=== PATIENT | female | born 1930 | race Caucasian/White ===

== ENCOUNTER 2019-03-29 14:21 | Inpatient (IN) ==
--- NOTE | 2019-03-29 15:22 | EKG Report ---
Test Performed on : 03/29/2019 2:59:40 PM Test Reason : SOB Blood Pressure : / mmHG Vent. Rate : 117 BPM Atrial Rate : 117 BPM P-R Int : 136 ms QRS Dur : 080 ms QT Int : 308 ms P-R-T Axes : 040 -63 028 degrees QTc Int : 429 ms Sinus tachycardia. Left axis deviation Low voltage QRS Possible Anterolateral infarct , age undetermined Abnormal ECG No previous ECGs available Unconfirmed Result
[2019-03-29 15:24] LABS: BASO# 0.02 X1000 (0.0-0.2); BASO% 0.3 % (0.0-0.8); HEMATOCRIT 21.1 % (37.0-47.0); HEMOGLOBIN 6.3 g/dL (12.0-16.0); LYMPH# 1.32 X1000 (1.2-3.4); LYMPH% 20.5 % (20.5-51.1); MCH 23.5 PG (27-31); MCHC 29.9 g/dL (33-37); MCV 78.7 FL (81-99); MONO# 0.39 X1000 (0.11-0.59); MPV 9.6 FL (7.4-10.4); NEUT# 4.72 X1000 (1.4-6.5); NEUT% 73.2 % (42.2-75.2); PLT 334 X1000 (130-400); RBC 2.68 XMIL (4.2-5.4); RDW 16.7 % (11.5-14.5); WBC 6.45 X1000 (4.8-10.8)
[2019-03-29 15:25] LABS: INR 1.03; PROTIME 13.7 Seconds (11.0-16.0); PTT 27.3 Seconds (22.3-41.8)
[2019-03-29 15:42] LABS: AGAP 9; ALB/GLOB RATIO 1.2; ALBUMIN 3.5 g/dL (3.5-5.0); ALKALINE PHOSPHATASE 59 U/L (32-104); BUN 24 mg/dL (8-22); CALCIUM 8.5 mg/dL (8.8-10.2); CHLORIDE 105 mmol/L (98-107); COSMO 280; CREATININE 0.6 mg/dL (0.5-0.9); ESTIMATED GFR > 60; GLUCOSE 145 mg/dL (70-104); GOT 11 U/L (10-30); GPT 5 U/L (10-36); POTASSIUM 4.1 mmol/L (3.5-5.1); SODIUM 137 mmol/L (136-145); TCO2 23 mmol/L (25-35); TOTAL BILIRUBIN 0.19 mg/dL (0.20-1.00); TOTAL PROTEIN 6.4 g/dL (6.3-8.3)
[2019-03-29] MEDS ORDERED: PROTONIX IV ONE (15:51)
[2019-03-29] MEDS ORDERED: SODIUM CHLORIDE 0.9% INJ ONE ×2 (15:51→19:00)
[2019-03-29] MEDS ORDERED: NS 1,000 ML IV ONE (15:52)
--- NOTE | 2019-03-29 17:35 | Diag Imaging Result Doc PS360 ---
EXAM: CT ANGIOGRAM ABD/PELVIS W/CON INDICATION: gi bleed TECHNIQUE: This exam was performed using automated exposure control, adjustment of mA or kV according to patient size, and/or use of iterative reconstruction technique. Thin section axial images and 3-D MIPS were obtained. COMPARISON: 04/02/2014 FINDINGS: There is a blush of contrast near the anal verge. This could be the source of bleeding. Please correlate clinically. No other abnormal contrast extravasation is identified along the colon, small bowel, or stomach. There is fairly advanced diverticulosis coli mainly involving the sigmoid colon. There is no evidence of diverticulitis. The liver, spleen, gallbladder, pancreas, and adrenal glands are grossly unremarkable. The kidneys are essentially unremarkable. The urinary bladder appears normal. There is a right ovarian cyst with no definite associated enhancement measuring 3.6 cm axially (2.5 cm previously). The remainder of the reproductive tract is grossly unremarkable as imaged. There are numerous compression deformities throughout the lower thoracic spine and lumbar spine that are of unknown acuity but probably chronic. There have been prior vertebroplasty at a couple of levels. There is moderate aortic atherosclerotic calcification but no evidence of aortic aneurysm. There is mild to moderate iliac artery atherosclerotic calcification. The iliac arteries remain patent. There is minimal atherosclerotic calcification involving the common femoral arteries bilaterally that remain patent. There is mild atherosclerotic calcification at the origin of the renal arteries and celiac trunk, which remain patent. The SMA and MARTHA are patent. IMPRESSION: 1.Contrast blush near the anal verge. This could be the site of the GI bleeding. No other abnormal contrast extravasation is appreciated. 2.Moderate aortic atherosclerotic disease. 3.Extensive uncomplicated sigmoid colonic diverticulosis. 4.Numerous lower thoracic and lumbar spine compression deformities of unknown acuity. 5.Increase in size of right ovarian cyst seen in 2014. However, no enhancement is appreciated. Electronically signed by Cruzito Bray 03/29/2019 5:33 PM
--- NOTE | 2019-03-29 18:55 | PROVIDER DOCUMENTATION ---
This chart was entered by Clara Eid Scribe, acting as scribe for Wei Caballero MD. HPI-Abdominal Pain/GI Problem - General Chief Complaint: GI Bleed Stated Complaint: PASSING BLOOD Time Seen by Provider: 03/29/19 15:03 Source: patient Allergies/Adverse Reactions: Patient Allergies Allergy/AdvReac Type Severity Reaction Status Date / Time Penicillins Allergy Unknown Verified 03/29/19 15:59 Home Medications: Home Medication List Medication Instructions Recorded Confirmed Last Taken Type NK [No Home Medications] 03/29/19 03/29/19 Unknown History - History of Present Illness-ABD Nature of Presenting Problems: Patient is a 88 year old female who presents with rectal bleeding. States weakness and dizziness with rectal bleeding. Reports symptoms started 2 days ago. Denies nausea, vomiting, diarrhea, constipation and abdominal pain. History of GI bleed. Quality of Pain: reports: none Severity in ED: reports: mild Onset/Duration: reports: 2 days ago Timing: reports: still present Activities at Onset: reports: light activity Associated Symptoms: reports: dizziness, weakness, other (rectal bleeding). denies: diarrhea, nausea, vomiting Dark Stools Present?: reports: bright red blood Rectal Bleeding: reports: bleeding without stool Bruising or Bleeding Gums?: No Similar Symptoms Previously?: Yes Recently seen or treated by another doctor?: No Review of Systems - Adult - REVIEW OF SYSTEMS - ADULT Constitutional: reports: no symptoms reported Eyes: reports: no symptoms reported Ears, Nose, Mouth & Throat: reports: no symptoms reported Cardiovascular: reports: no symptoms reported Respiratory: reports: no symptoms reported Gastrointestinal: reports: see HPI, rectal bleeding. denies: abdominal pain, diarrhea, nausea, vomiting Genitourinary: reports: no symptoms reported Musculoskeletal: reports: see HPI, muscle weakness Integumentary: reports: no symptoms reported Neurological: reports: see HPI, dizziness/vertigo (dizziness). denies: syncope Psychiatric: reports: no symptoms reported Endocrine: reports: no symptoms reported Hematologic/Lymphatic: reports: no symptoms reported Allergic/Immunologic: reports: no symptoms reported All Other Systems: Reviewed and Negative Past History - Adult - PAST MEDICAL HISTORY-ADULT Review of Records: reports: Old Records Reviewed, Nursing Assessment Review, Medications Reviewed, Social history reviewed & non-contributory. Major Childhood Illnesses: reports: denies history Cardiovascular: reports: denies history Respiratory: reports: denies history Gastrointestinal: reports: GERD, hemorrhoids, other (GI bleed) Obstetrical/Gynecological: reports: denies history Genitourinary: reports: denies history Musculoskeletal: reports: denies history Neurological: reports: denies history Psychiatric: reports: denies history Endocrine/Immune: reports: denies history - PRIOR SURGERIES/PROCEDURES Surgical/Procedure History: reports: colonoscopy, tonsillectomy - PRIOR HOSPITALIZATIONS Prior Hospitalizations: reports: none - IMMUNIZATION STATUS Childhood Immunizations: UTD Flu Vaccine: See Nurse Assessment - FAMILY HISTORY Family History: reviewed, not pertinent, CAD over 55 yo - SOCIAL HISTORY Smoking: denies Substance Use: denies Physical Exam-General - PHYSICAL EXAM-ADULT Initial Vital Signs Reviewed: Yes - CONSTITUTIONAL General Appearance: appears well, alert, no apparent distress, thin - RESPIRATORY Respiratory: chest non-tender, lungs clear, normal breath sounds - CARDIOVASCULAR Cardiovascular: regular rate, rhythm, no gallop, no murmur - GASTROINTESTINAL (ABDOMEN) Abdominal Exam: normal bowel sounds, non tender, soft - GENITOURINARY Rectal Exam: hemorrhoids (external), other (grossly bloody stool present.) - MUSCULOSKELETAL Extremity: non-tender, normal inspection - SKIN Integumentary: normal color, normal turgor, warm/dry - NEUROLOGIC Neurologic: grossly normal - PSYCHIATRIC Psych/Mental Status: normal mood/affect, oriented x 3 Progress - PLAN OF CARE/RESULTS Progress/Plan/Lab Results: Vital Signs - 8 hr 03/29/19 14:45 Temperature 98.2 F Pulse Rate 117 H Respiratory Rate 20 Blood Pressure 109/62 O2 Sat by Pulse Oximetry 97 Laboratory Results - last 24 hr 03/29/19 03/29/19 03/29/19 15:05 15:05 15:05 WBC 6.45 RBC 2.68 L Hgb 6.3 L Hct 21.1 L MCV 78.7 L MCH 23.5 L MCHC 29.9 L RDW Std Deviation 16.7 H Plt Count 334 MPV 9.6 Immature Gran % (Auto) 0.0 Neut % (Auto) 73.2 Lymph % (Auto) 20.5 [place] % (Auto) 6.0 Eos % (Auto) 0.0 Baso % (Auto) 0.3 Immature Gran # (Auto) 0.00 Neut # (Auto) 4.72 Lymph # (Auto) 1.32 [place] # (Auto) 0.39 Eos # (Auto) 0.00 Baso # (Auto) 0.02 PT 13.7 INR 1.03 PTT (Actin FS) 27.3 Sodium 137 Potassium 4.1 Chloride 105 Carbon Dioxide 23 L Anion Gap 9 BUN 24 H Creatinine 0.6 Estimated GFR/1.73 m2 > 60 BUN/Creatinine Ratio 40 Glucose 145 H Calculated Osmolality 280 Calcium 8.5 L Total Bilirubin 0.19 L AST 11 ALT 5 L Alkaline Phosphatase 59 Total Protein 6.4 Albumin 3.5 Globulin 2.9 Albumin/Globulin Ratio 1.2 Orders Category Date Time Status CBC WITH ELECTRONIC DIFF [HEME] Stat Lab 03/29/19 15:05 Completed COMPREHENSIVE METABOLIC PANEL [CHEM] Stat Lab 03/29/19 15:05 Completed OCCULT BLOOD SCREENING [STOOL] Stat Lab 03/29/19 15:06 Uncollected PROTIME WITH INR [COAG] Stat Lab 03/29/19 15:05 Completed PTT [COAG] Stat Lab 03/29/19 15:05 Completed TYPE & SCREEN [BBK] Stat Lab 03/29/19 15:05 Results GI Bleed (possible) Stat Oth 03/29/19 14:57 Ordered EKG [EKG] Stat Ther 03/29/19 15:02 Draft Noted anemia so given 2 units PRBCs and noted positive hemoccult. HD stable at this time. Also given IV normal saline bolus and protonix IVP. Proceed to admit with Dr. Bean hospitalist. Patient aware and agrees with plan of care. Noted CTA finding of GI bleed source at anal verge with extensive sigmoid diver ticulosis. No altered mental status. Result Diagrams: 03/29/19 15:05 03/29/19 15:05 - EKG 1 Time of EKG reading by physician:: 15:10 EKG Read and Signed by:: Naun Bolivar EKG Interpretation (*Must complete 3 of following elements*): Abnormal Rate: 117 Rhythm: sinus tachycardia [place]: left QRS: other (low voltage) LA Interval: normal Comments: possible anterolateral infarct, age undetermined - CT/MRI 1 CT Study: Abdomen Impression: See EMR Report (EXAM: CT ANGIOGRAM ABD/PELVIS W/CON INDICATION: gi bleed TECHNIQUE: This exam was performed using automated exposure control, adjustment of mA or kV according to patient size, and/or use of iterative reconstruction technique. Thin section axial images and 3-D MIPS were obtained. COMPARISON: 04/02/2014 FINDINGS: There is a blush of contrast near the anal verge. This could be the source of bleeding. Please correlate clinically. No other abnormal contrast extravasation is identified along the colon, small bowel, or stomach. There is fairly advanced diverticulosis coli mainly involving the sigmoid colon. There is no evidence of diverticulitis. The liver, spleen, gallbladder, pancreas, and adrenal glands are grossly unremarkable. The kidneys are essentially unremarkable. The urinary bladder appears normal. There is a right ovarian cyst with no definite associated enhancement measuring 3.6 cm axially (2.5 cm previously). The remainder of the reproductive tract is grossly unremarkable as imaged. There are numerous compression deformities throughout the lower thoracic spine and lumbar spine that are of unknown acuity but probably chronic. There have been prior vertebroplasty at a couple of levels. There is moderate aortic atherosclerotic calcification but no evidence of aortic aneurysm. There is mild to moderate iliac artery atherosclerotic calcification. The iliac arteries remain patent. There is minimal atherosclerotic calcification involving the common femoral arteries bilaterally that remain patent. There is mild atherosclerotic calcification at the origin of the renal arteries and celiac trunk, which remain patent. The SMA and MARTHA are patent. I MPRESSION: 1.Contrast blush near the anal verge. This could be the site of the GI bleeding. No other abnormal contrast extravasation is appreciated. 2.Moderate aortic atherosclerotic disease. 3.Extensive uncomplicated sigmoid colonic diverticulosis. 4.Numerous lower thoracic and lumbar spine compression deformities of unknown acuity. 5.Increase in size of right ovarian cyst seen in 2015. However, no enhancement is appreciated. Electronically signed by Cruzito Bray 03/29/2019 5:33 PM) Departure - Departure Date of Disposition Decision: 03/29/19 Time of Disposition Decision: 18:52 DIAGNOSIS: Lower GI bleed, Symptomatic anemia Disposition: ADMITTED INPATIENT 09 Certified Medical Emergency: Emergent Condition: Fair Referrals and Follow-Ups: Joslyn Mendoza MD [Primary Care Provider] - - Critical Care Note This patient required my direct & personal management of CC.: Yes Total Time (mins): 61 Critical Care Statement: This patient required my direct personal management to treat or rule out processes, the absence of which, could potentiallly result in sudden, clinically significant life or limb threatening deterioration. Attestation - Physician/ YA Attestation Patient care was provided by Advanced Practice Provider:: No The physician spent face to face time with patient:: Yes Advanced Practice Provider documentation review:: Supervising physician onsite and consulted in the evaluation and care of this patient. The physician did have a face to face encounter with the patient. This chart was documented by the indicated scribe, (Clara Eid Scribe) and accurately reflects the services I performed and decisions made by me, Wei Suarez MD, as attested by the provider's signature.
[2019-03-29] MEDS ORDERED: PROTONIX IV SCH (19:00)
--- NOTE | 2019-03-29 19:19 | HISTORY AND PHYSICAL ---
HISTORY OF PRESENT ILLNESS: This is an 88-year-old whose doctor is Dr. Joslyn Mendoza. She has had previous admissions for anemia. They are not sure where she is losing blood. They think it is around the rectum, but she has not had any symptoms, has not noticed any blood in her stool, but she has noticed that she has felt a little lightheaded and weak in the last couple weeks and then she said the other day she felt like she might pass out. So, recognizing the symptoms, she came to the emergency room. In the emergency room, they found her hemoglobin was 6.3, hematocrit was 21. She says she has no other past medical history. No surgeries other than her tonsils taken out. ALLERGIES: Penicillin. SOCIAL HISTORY: Negative for alcohol or tobacco. FAMILY HISTORY: Unremarkable. REVIEW OF SYSTEMS: General: No weight gain or loss. No fever or chills. HEENT: Unremarkable. Respiratory: No increased work of breathing or dyspnea. Cardiovascular: No chest pain or tachy palpitations. Gastrointestinal and Genitourinary: No gross hematuria or dysuria. Musculoskeletal/Neurologic: No significant complaints. Endocrinologic/Hematologic: No significant history other than blood loss anemia requiring transfusions in the past. She has had workups with endoscopy and other things and from her understanding, they do not have a definitive answer where the blood is going. LABORATORY DATA: White count 6450, hematocrit 21, hemoglobin 6.3, platelet count 334,000. Sodium 137, potassium 4.1, chloride 105, BUN 25, creatinine 0.6, blood sugars 145, calcium is 8.5. AST 11, ALT is 5, alkaline phosphatase 59. ProTime is 13.7, INR is 1.03, PTT is 27. IMAGING: Abdominal and pelvic CT: Contrast blush near the anal verge. This could be the side of the GI bleed. Moderate aortic atherosclerotic disease. Extensive uncomplicated sigmoid colon diverticulosis and numerous lower thoracic and lumbar spine compression deformities of unknown acuity. There is an increased size of right ovarian cyst since 2015. ASSESSMENT AND PLAN: Gastrointestinal blood loss. We will give her some blood. Start of with 2 units packed red blood cells. Hopefully, she can go home in the morning. I do not think we are going to explore any further as for gastrointestinal exploration. We ought to check her T4, TSH. We ought to check her B12 and folate. We will check iron studies including ferritin, total iron, serum iron and total iron binding capacity, and we will give her 2 units. Check her hemoglobin and hematocrit in the morning and decide whether they want to give any more blood. Hopefully, she can go home. cc: Thiago eBan MD
[2019-03-29 19:57] LABS: FREE T4 0.89 ng/dL (0.93-1.70)
[2019-03-29] MEDS ORDERED: TYLENOL PO PRN (20:00)
[2019-03-29] MEDS ORDERED: ZOFRAN IV PRN (20:00)
[2019-03-30 07:09] LABS: HEMATOCRIT 24.1 % (37.0-47.0); HEMOGLOBIN 7.6 g/dL (12.0-16.0); MCH 25.6 PG (27-31); MCHC 31.5 g/dL (33-37); MCV 81.1 FL (81-99); MPV 9.7 FL (7.4-10.4); RBC 2.97 XMIL (4.2-5.4); RDW 15.9 % (11.5-14.5); RETIC% 1.64 % (0.8-2.1); RETIC-HE 22.8 PG (28.2-36.6); WBC 4.14 X1000 (4.8-10.8)
[2019-03-30 07:32] LABS: URINE SOURCE CLEAN CATCH
[2019-03-30 07:37] LABS: BILIRUBIN URINE NEGATIVE (NEGATIVE); BLOOD URINE NEGATIVE (NEGATIVE); COLOR YELLOW; GLUCOSE URINE NEGATIVE (NEGATIVE); KETONE URINE NEGATIVE (NEGATIVE); LEUKOCYTES URINE NEGATIVE (NEGATIVE); NITRITE URINE NEGATIVE (NEGATIVE); PROTEIN URINE NEGATIVE (NEGATIVE); SP GRAVITY URINE 1.044; TURBIDITY URINE CLEAR (CLEAR); UROBILINOGEN URINE NORMAL (NORMAL)
[2019-03-30 07:42] LABS: UR EPITHELIAL CELLS <10 /HPF (<10); URINE BACTERIA NEGATIVE /HPF; URINE RBC <10 /HPF (<10); URINE WBC <10 /HPF (<10)
[2019-03-30 07:49] LABS: AGAP 6; BUN 13 mg/dL (8-22); CHLORIDE 108 mmol/L (98-107); COSMO 276; CREATININE 0.6 mg/dL (0.5-0.9); ESTIMATED GFR > 60; GLUCOSE 98 mg/dL (70-104); POTASSIUM 3.8 mmol/L (3.5-5.1); SODIUM 138 mmol/L (136-145); TCO2 24 mmol/L (25-35)
[2019-03-30 07:50] LABS: IRON SATURATION 59 %; TIBC 293 ug/dL; TOTAL IRON 173 ug/dL (49-151); UNBOUND IRON 120 ug/dL (112-346)
[2019-03-30 08:11] LABS: TSH 5.76 uIUmL (0.27-4.20)
[2019-03-30 15:12] LABS: HEMATOCRIT 25.5 % (37.0-47.0); HEMOGLOBIN 7.9 g/dL (12.0-16.0)
[2019-03-30] MEDS: PROTONIX IV SCH ×2 (17:43→17:48)
[2019-03-30] MEDS: SODIUM CHLORIDE 0.9% INJ SCH (17:47)
--- NOTE | 2019-03-31 05:08 | PROGRESS NOTE ---
DATE: 03/30/2019 SUBJECTIVE: The patient is resting comfortably in bed. She states that she has not had a bowel movement since admission. She denies having any nausea, vomiting, or abdominal pain. She received 2 units of packed red blood cells yesterday. OBJECTIVE: Vital Signs: Temperature 98.5 degrees, blood pressure 126/61, heart rate 63, respirations 18, O2 saturation 96% on room air. General: This is a chronically ill-appearing, elderly female lying in bed in no acute distress. Heart: S1, S2 normal. Regular rate and rhythm. Lungs: Clear to auscultation bilaterally. Abdomen: Positive bowel sounds. Soft, nontender, nondistended. Extremities: No edema, no cyanosis. Neurologic: The patient is alert and oriented x4. LABS: White blood cell count 4.1, hemoglobin 7.9, hematocrit 25, platelets 239,000. Sodium 138, potassium 3.8, chloride 108, CO2 24, BUN 13, creatinine 0.6, glucose 98. ASSESSMENT AND PLAN: 1. Rectal bleeding. The patient has not had any further bleeding so far. She received 2 units of packed red blood cells yesterday and so far her hemoglobin and hematocrit are stable. Gastroenterology has been consulted. 2. Severe diverticulosis. Aware. 3. Gastrointestinal prophylaxis. Continue on Protonix. 4. Deep vein thrombosis prophylaxis. Will start the patient on sequential compression devices. cc: Thelma Keith MD MTDD
[2019-03-31 06:58] LABS: HEMATOCRIT 25.6 % (37.0-47.0); HEMOGLOBIN 8.1 g/dL (12.0-16.0); MCH 26.2 PG (27-31); MCHC 31.6 g/dL (33-37); MCV 82.8 FL (81-99); MPV 9.7 FL (7.4-10.4); RBC 3.09 XMIL (4.2-5.4); RDW 16.6 % (11.5-14.5); WBC 3.55 X1000 (4.8-10.8)
[2019-03-31 07:43] LABS: AGAP 8; BUN 9 mg/dL (8-22); CALCIUM 8.4 mg/dL (8.8-10.2); CHLORIDE 108 mmol/L (98-107); COSMO 280; CREATININE 0.6 mg/dL (0.5-0.9); ESTIMATED GFR > 60; GLUCOSE 108 mg/dL (70-104); POTASSIUM 3.1 mmol/L (3.5-5.1); SODIUM 141 mmol/L (136-145); TCO2 25 mmol/L (25-35)
[2019-03-31] MEDS ORDERED: KLOR-CON PO ONE (10:21)
[2019-03-31] MEDS: MIRALAX PO SCH (11:00)
[2019-03-31] MEDS: COLACE PO SCH ×2 (11:01→21:23)
[2019-03-31] MEDS: PROTONIX IV SCH (17:23)
[2019-03-31] MEDS: SODIUM CHLORIDE 0.9% INJ SCH (17:23)
[2019-03-31] MEDS ORDERED: DULCOLAX PR ONE (18:24)
--- NOTE | 2019-03-31 20:11 | PROGRESS NOTE ---
DATE: 03/31/2019 SUBJECTIVE: The patient states that she feels good today. She states that she is hungry and wants to try solid food. She has not had a bowel movement yet. OBJECTIVE: Vital signs: Temperature 97.4 degrees, blood pressure 103/72, heart rate 83, respirations 16, O2 saturation 94% on room air.General: This is a chronically ill-appearing elderly female, sitting up in bed in no acute distress. Heart: S1, S2 normal. Regular rate and rhythm. Lungs: Equal air entry bilaterally. No wheezing. No rales. Abdomen: Positive bowel sounds. Soft, nontender, nondistended. Extremities: No edema, no cyanosis. Neurologic: The patient is alert and oriented x3. LABORATORY DATA: Hemoglobin 8.1, hematocrit 25, platelets 245,000. Sodium 141, potassium 3.1, chloride 108, CO2 is 25, BUN 9, creatinine 0.6, glucose 108. ASSESSMENT AND PLAN: 1. Rectal bleeding. This appears to have resolved. The patient's hemoglobin and hematocrit are stable. She has not had a bowel movement yet. We will add laxative therapy and monitor the hemoglobin and hematocrit. GI was consulted. 2. Severe diverticulosis. Aware. 3. Anemia of acute blood loss. Stable. We will start the patient on iron replacement therapy. 4. Gastrointestinal prophylaxis. Continue on Protonix. 5. Deep vein thrombosis prophylaxis. Continue with sequential compression devices. 6. Disposition. Once the patient has a bowel movement, she should be able to be discharged home. cc: Thelma Keith MD MTDD
[2019-03-31] MEDS: ICAR-C PO SCH (21:23)
[2019-03-31] MEDS: LACTULOSE PO SCH (21:23)
[2019-04-01 07:18] VITALS: BP 126/56
[2019-04-01 07:26] LABS: HEMATOCRIT 27.2 % (37.0-47.0); HEMOGLOBIN 8.4 g/dL (12.0-16.0); MCH 25.5 PG (27-31); MCHC 30.9 g/dL (33-37); MCV 82.7 FL (81-99); MPV 9.7 FL (7.4-10.4); RBC 3.29 XMIL (4.2-5.4); RDW 17.4 % (11.5-14.5); WBC 5.05 X1000 (4.8-10.8)
[2019-04-01 08:18] LABS: AGAP 8; BUN 12 mg/dL (8-22); CALCIUM 8.6 mg/dL (8.8-10.2); CHLORIDE 108 mmol/L (98-107); COSMO 278; CREATININE 0.6 mg/dL (0.5-0.9); ESTIMATED GFR > 60; GLUCOSE 109 mg/dL (70-104); PHOSPHORUS 2.8 mg/dL (2.7-4.5); POTASSIUM 3.8 mmol/L (3.5-5.1); SODIUM 139 mmol/L (136-145); TCO2 23 mmol/L (25-35)
[2019-04-01] MEDS: COLACE PO SCH (08:27)
[2019-04-01] MEDS: ICAR-C PO SCH (08:27)
[2019-04-01] MEDS: MIRALAX PO SCH (08:28)
[2019-04-01] MEDS: LACTULOSE PO SCH (08:28)
--- NOTE | 2019-04-01 13:48 | GASTROENTEROLOGY PROGRESS NOTE ---
DATE: 04/01/2019 SUBJECTIVE: Ms. Kowalski is an 88-year-old female resting in bed. The patient has denied any nausea, vomiting, abdominal pain. She has denied any further bleeding episodes. The patient is excited to go home. She has discharge orders for today. OBJECTIVE: Vital Signs: Temperature 97.9 degrees, pulse 79, respirations 16, blood pressure 108/61, oxygen saturation 95% on room air. The patient's weight is 111 pounds, BMI is 21.1 kg/m2. General: She is alert, oriented x3, and in no acute distress. HEENT: Pale conjunctivae. No icterus. PERRL. Neck: Supple. Lungs: Clear to auscultation. Cardiovascular: Regular rate and rhythm. Abdomen: Soft, nontender, nondistended. Active bowel sounds heard in all 4 quadrants. Extremities: No clubbing, no cyanosis, no edema. Pedal pulses 2+ present bilaterally. Neurologic: She is alert, oriented x3. LABS: WBCs are 5.05, RBC 3.29, hemoglobin 8.4, hematocrit is 27.2. Sodium 139, potassium 3.8, chloride 108, carbon dioxide 23, anion gap 8. BUN 12, creatinine is 0.6 glucose 109, calcium 8.6, phosphorus 2.8, magnesium 2.0. IMPRESSION AND PLAN: 1. Rectal bleeding. 2. Diverticulosis. 3. Anemia. PLAN: Ms. Kowalski is an 88-year-old female. GI has been following her for rectal bleeding and anemia. The patient's hemoglobin and hematocrit today is 8.4 and 27.2. She is hemodynamically stable. The patient has so far received 2 units of blood. The patient has denied any further bleeding episodes. The patient has discharge orders to go home today. Advised patient to have high fiber diet, avoid nuts, corns and seeds. We will continue to monitor the patient and follow the plan of care per PCP. This plan was discussed with Dr. Bruno. Please call us for any further questions or concerns. Dictated by JO ANN Tovar for Moody Bruno MD cc: Moody Bruno MD I have seen and examined the patient myself and I agree with the above plan of care. Please call us with any further questions or concerns. FELICE
--- NOTE | 2019-04-01 16:19 | GASTROENTEROLOGY CONSULTATION ---
DATE: 04/01/2019 REASON FOR CONSULTATION: Hematochezia. HISTORY OF PRESENT ILLNESS: Ms. Kristen Kowalski is an 88-year-old woman with a past medical history of lower GI bleeding, diverticulosis, hemorrhoids, who presented on 03/29/2019 with two days of rectal bleeding. The patient reports having bright red blood with clots for two days without associated symptoms including chest pain, shortness of breath, abdominal pain, melena, weight loss, fevers, chills, hematemesis, rectal bleeding. The last hospitalization here in 2014. REVIEW OF SYSTEMS: As per the HPI, otherwise 12-point review of systems is negative. PAST MEDICAL HISTORY: No prior abdominal surgeries. MEDICATIONS: None. ALLERGIES: Penicillin. FAMILY HISTORY: Reviewed. No family history of GI malignancies. SOCIAL HISTORY: No smoking, alcohol, or drug use. LABORATORIES: White blood cell count of 3.5, hemoglobin 8.1 [*]6.3, [*]245, INR of 1.03, sodium 141, potassium 3.1, chloride of 108, bicarb 25, BUN 9, creatinine of 0.6, glucose of 108, calcium of 8.4, [*]293, [*]total bilirubin of 0.19, AST of 11, ALT of 5, alkaline phosphatase of [*], total protein of 6.4, albumin 3.5. [*]f 13.0, TSH of 5.76, free T4 0.89. UA is negative. IMAGING: CT abdomen and pelvis with angiogram showed contrast [*]near the anal verge [*] GI bleeding, no other abnormalities. No other abnormal contrast extravasation [*] Moderate atherosclerosis with complicated diverticulosis in the sigmoid colon, numerous lower thoracic and lumbar spine compression fractures, [*]of right ovarian cyst [*]no [*]is appreciated. ASSESSMENT AND PLAN: Ms. Kristen Kowalski is an 88-year-old woman with a past medical history of diverticular bleed, who represents with two days of rectal bleeding likely from diverticulosis. She denies any ongoing bleeding at this time. No abdominal pain. She is not complaining of any shortness of breath, [*]She is not taking any blood thinners. She refuses any further workup at this time. We will continue to trend her hemoglobin and hematocrit daily [*] We will follow with you. Please call with any questions or concerns.
--- NOTE | 2019-04-07 08:55 | DISCHARGE SUMMARY ---
ADMISSION DATE: 03/31/2019 DISCHARGE DATE: 04/01/2019 FINAL DISCHARGE DIAGNOSES: 1. Rectal bleeding. 2. Anemia of acute blood loss. 3. Hypokalemia. 4. Severe diverticulosis. CONSULTATIONS: GI consultation with Dr. Adame. IMAGING: CTA of the abdomen and pelvis with contrast, which revealed moderate aortic atherosclerotic disease. Contrast blush near the anal verge. Extensive uncomplicated sigmoid colonic diverticulosis. Numerous lower thoracic and lumbar spine compression deformities of unknown acuity. HOSPITAL COURSE: Ms. Kowalski is an 88-year-old female, who presented to the ER with rectal bleeding. On admission, the patient was noted to have a hemoglobin and hematocrit of 6.3 and 21 respectively. A CTA of the abdomen and pelvis was done that revealed a contrast blush at the anal verge. The patient was admitted to the Hospitalist Service, and blood transfusion was ordered. GI was consulted for recommendation. After discussion with the patient, she decided that she did not want any endoscopy to be done on her. The patient was kept in the hospital, and her hemoglobin and hematocrit were monitored, and slowly improved over the course of the hospitalization. Also, the patient had no further rectal bleeding while hospitalized. She was able to tolerate a heart healthy diet, and was noted to be having bowel movements that did not contain blood. The patient was ultimately cleared for discharge home on 04/01/2019. DISCHARGE MEDICATIONS: 1. MiraLAX 17 grams oral daily. 2. Ferrous sulfate 325 mg oral daily. 3. Colace 100 mg oral twice a day. DISCHARGE DIET: Heart healthy diet. The patient was also advised to avoid seeds in her diet. FOLLOWUP INSTRUCTIONS: The patient is scheduled to follow up with Dr. Adame on 04/15/2019 at 8:45 a.m. The patient is also scheduled to follow up with Dr. Joslyn Mendoza on 04/08/2019 at 2:45 p.m. cc: MD Joslyn Hameed MD
== END 2019-04-01 11:52 | disposition home or self-care (01) | DRG 811 ==
LOC: 4N 14:21 → ED 14:21 → SUATTDRO 20:33 → 4N 03-31 07:24
PROVIDERS: ATTEND Internal Medicine

== ENCOUNTER 2019-04-08 06:10 | Inpatient (IN) ==
--- NOTE | 2019-04-08 06:57 | PROVIDER DOCUMENTATION ---
This chart was entered by Lyn Murdock Scribe, acting as scribe for Robel Mendoza DO. HPI-Abdominal Pain/GI Problem - General Source: patient - History of Present Illness-ABD Nature of Presenting Problems: 88yof presents to ED cc rectal bleeding upon waking at 4am. Pt reports she filled the toilet bowl with bright red blood. Pt was admitted inpatient on 03/31/2019 for same symptoms and had to receive 2 pints of blood. Pt denies any pain/N/V/D. Pt has hx of diverticulosis. Pt is nontoxic and in no acute distress upon exam. Quality of Pain: reports: none Severity in ED: reports: mild Onset/Duration: reports: 1-3 hours ago Timing: reports: still present Activities at Onset: reports: sleep Modifying Factors: improves with: nothing Associated Symptoms: reports: denies symptoms Rectal Bleeding: reports: bleeding without stool Rectal Pain: reports: none Emesis Description: reports: none Bruising or Bleeding Gums?: No Similar Symptoms Previously?: Yes Recently seen or treated by another doctor?: Yes (seen in ED 03/31/2019) <Robel Mendoza - Last Filed: 04/08/19 06:57> <Edgard Kat - Last Filed: 04/08/19 08:25> - General Chief Complaint: GI Bleed Stated Complaint: PASSING BLOOD Time Seen by Provider: 04/08/19 06:36 Allergies/Adverse Reactions: Patient Allergies Allergy/AdvReac Type Severity Reaction Status Date / Time Penicillins Allergy Unknown Verified 03/29/19 15:59 Home Medications: Home Medication List Medication Instructions Recorded Confirmed Last Taken Type Ferrous Sulfate [Ferrousul] 325 mg PO DAILY #30 tab 03/31/19 04/08/19 Unknown Rx Polyethylene Glycol 3350 [Miralax] 17 gm PO DAILY #30 powder, packet 03/31/19 04/08/19 Unknown Rx Docusate Sodium [Colace] 100 mg PO BID #60 cap 04/01/19 04/08/19 Unknown Rx Review of Systems - Adult - REVIEW OF SYSTEMS - ADULT Constitutional: reports: see HPI. denies: chills, fever, fatique Eyes: reports: no symptoms reported Ears, Nose, Mouth & Throat: reports: no symptoms reported Cardiovascular: reports: no symptoms reported Respiratory: reports: see HPI. denies: cough, shortness of breath, wheezing Gastrointestinal: reports: see HPI, rectal bleeding. denies: abdominal pain, constipation, diarrhea, nausea, vomiting Genitourinary: reports: no symptoms reported Musculoskeletal: reports: no symptoms reported Integumentary: reports: no symptoms reported Neurological: reports: no symptoms reported Psychiatric: reports: no symptoms reported Endocrine: reports: no symptoms reported Hematologic/Lymphatic: reports: no symptoms reported Allergic/Immunologic: reports: no symptoms reported All Other Systems: Reviewed and Negative <Robel Mendoza - Last Filed: 04/08/19 06:57> Past History - Adult - PAST MEDICAL HISTORY-ADULT Review of Records: reports: Old Records Reviewed, Nursing Assessment Review, Medications Reviewed, Social history reviewed & non-contributory. Major Childhood Illnesses: reports: denies history Cardiovascular: reports: denies history, cardiac disease Respiratory: reports: denies history, asthma Gastrointestinal: reports: GERD, hemorrhoids, other (GI bleed) Obstetrical/Gynecological: reports: denies history Genitourinary: reports: denies history Musculoskeletal: reports: denies history Neurological: reports: denies history Psychiatric: reports: denies history, anxiety Endocrine/Immune: reports: denies history Other Conditions: reports: other (hemorrhoids) - PRIOR SURGERIES/PROCEDURES Surgical/Procedure History: reports: colonoscopy - PRIOR HOSPITALIZATIONS Prior Hospitalizations: reports: none - IMMUNIZATION STATUS Childhood Immunizations: UTD Flu Vaccine: See Nurse Assessment - FAMILY HISTORY Family History: reviewed, not pertinent, CAD over 55 yo <Robel Mendoza - Last Filed: 04/08/19 06:57> Physical Exam-General - PHYSICAL EXAM-ADULT Initial Vital Signs Reviewed: Yes - CONSTITUTIONAL General Appearance: appears well, alert, no apparent distress. negative: anxious, combative - EYES Eyes: PERRL/EOMI, pink conjunctivae. negative: photophobia - HEAD, EARS, NOSE, MOUTH & THROAT HENMT: normocephalic/atraumatic, moist mucous membranes. negative: angioedema - NECK Neck: non-tender, supple, other (DJD cervical) - RESPIRATORY Respiratory: chest non-tender, lungs clear, normal breath sounds, no pleuratic chest pain, no respiratory distress, no accessory muscle use. negative: crackles, rales, rhonchi, stridor, wheezing - CARDIOVASCULAR Cardiovascular: normal peripheral pulses, regular rate, rhythm, no edema, no gallop, no JVD, systolic murmur (1-2/6 at the apex and 2nd left intercostal space). negative: bradycardia, tachycardia - GASTROINTESTINAL (ABDOMEN) Abdominal Exam: normal bowel sounds, non tender, soft, no organomegaly, no pulsatile mass. negative: distended, guarding, rigid, rebound - GENITOURINARY Rectal Exam: other (rectal bleeding) - LYMPHATIC Lymphatic: no adenopathy. negative: enlargement - MUSCULOSKELETAL Back Exam: no vertebral tenderness, CVA tenderness, kyphosis, other (DJD thoracic and lumbar). negative: swelling Extremity: normal range of motion, non-tender, normal gait, normal inspection, no pedal edema, no calf tenderness, normal capillary refill, pelvis stable. negative: deformity, tenderness - SKIN Integumentary: normal color, normal turgor, warm/dry. negative: diaphoresis, jaundice, rash - PSYCHIATRIC Psych/Mental Status: normal mood/affect, oriented x 3. negative: anxious, disheveled <Robel Mendoza - Last Filed: 04/08/19 06:57> Progress - PLAN OF CARE/RESULTS Progress/Plan/Lab Results: Vital Signs - 8 hr 04/08/19 06:22 Temperature 98.1 F Pulse Rate 104 H Respiratory Rate 18 Blood Pressure 130/69 O2 Sat by Pulse Oximetry 96 <Robel Mendoza - Last Filed: 04/08/19 06:57> - PLAN OF CARE/RESULTS Progress/Plan/Lab Results: Vital Signs - 8 hr 04/08/19 06:22 Temperature 98.1 F Pulse Rate 104 H Respiratory Rate 18 Blood Pressure 130/69 O2 Sat by Pulse Oximetry 96 Laboratory Results - last 24 hr 04/08/19 04/08/19 04/08/19 06:55 06:55 06:55 WBC 6.39 RBC 3.46 L Hgb 9.0 L Hct 29.6 L MCV 85.5 MCH 26.0 L MCHC 30.4 L RDW Std Deviation 20.5 H Plt Count 351 MPV 9.4 Immature Gran % (Auto) 0.0 Neut % (Auto) 66.1 Lymph % (Auto) 23.8 [place] % (Auto) 5.0 Eos % (Auto) 0.6 Baso % (Auto) 4.5 H Immature Gran # (Auto) 0.00 Neut # (Auto) 4.22 Lymph # (Auto) 1.52 [place] # (Auto) 0.32 Eos # (Auto) 0.04 Baso # (Auto) 0.29 H PT 13.7 INR 1.03 PTT (Actin FS) 28.5 Sodium 139 Potassium 3.8 Chloride 104 Carbon Dioxide 25 Anion Gap 10 BUN 12 Creatinine 0.7 Estimated GFR/1.73 m2 > 60 BUN/Creatinine Ratio 17 Glucose 127 H Calculated Osmolality 279 Calcium 8.9 Total Bilirubin 0.23 AST 11 ALT 5 L Alkaline Phosphatase 60 Total Protein 6.2 L Albumin 3.7 Globulin 2.5 Albumin/Globulin Ratio 1.5 Orders Category Date Time Status IV Insertion ORDERED Care 04/08/19 06:31 Completed CBC WITH ELECTRONIC DIFF [HEME] Stat Lab 04/08/19 06:55 Completed COMPREHENSIVE METABOLIC PANEL [CHEM] Stat Lab 04/08/19 06:55 Completed PROTIME WITH INR [COAG] Stat Lab 04/08/19 06:55 Completed PTT [COAG] Stat Lab 04/08/19 06:55 Completed Result Diagrams: 04/08/19 06:55 04/08/19 06:55 - CONSULTS/PCP/HOSPITALIST Notification #1 *Consult/PCP/Hospitalist*: Yuli for Hospitalist Time Discussed: 08:25 Consult Disposition: Will see in ED, Admit <Edgard Kat - Last Filed: 04/08/19 08:25> Departure - Departure Date of Disposition Decision: 04/08/19 Certified Medical Emergency: Emergent <Robel Mendoza - Last Filed: 04/08/19 06:57> - Departure Time of Disposition Decision: 08:25 Certified Medical Emergency: Emergent - Critical Care Note This patient required my direct & personal management of CC.: No <Edgard Kat - Last Filed: 04/08/19 08:25> - Departure DIAGNOSIS: GI bleed Disposition: ADMITTED INPATIENT 09 Condition: Stable Referrals and Follow-Ups: Joslyn Mendoza MD [Primary Care Provider] - Attestation - Physician/ YA Attestation Patient care was provided by Advanced Practice Provider:: No The physician spent face to face time with patient:: Yes Advanced Practice Provider documentation review:: Supervising physician onsite and consulted in the evaluation and care of this patient. The physician did have a face to face encounter with the patient. <Robel Mendoza - Last Filed: 04/08/19 06:57> - Physician/ YA Attestation Patient care was provided by Advanced Practice Provider:: No The physician spent face to face time with patient:: Yes Advanced Practice Provider documentation review:: Supervising physician onsite and consulted in the evaluation and care of this patient. The physician did have a face to face encounter with the patient. <Edgard Kat - Last Filed: 04/08/19 08:25> This chart was documented by the indicated scribe, (Lyn Murdock Scribe) and accurately reflects the services I performed and decisions made by , Robel Mendoza DO, as attested by the provider's signature.
[2019-04-08 07:29] LABS: INR 1.03; PROTIME 13.7 Seconds (11.0-16.0)
[2019-04-08 07:30] LABS: PTT 28.5 Seconds (22.3-41.8)
[2019-04-08 07:31] LABS: AGAP 10; ALB/GLOB RATIO 1.5; ALBUMIN 3.7 g/dL (3.5-5.0); ALKALINE PHOSPHATASE 60 U/L (32-104); BUN 12 mg/dL (8-22); CALCIUM 8.9 mg/dL (8.8-10.2); CHLORIDE 104 mmol/L (98-107); COSMO 279; CREATININE 0.7 mg/dL (0.5-0.9); ESTIMATED GFR > 60; GLUCOSE 127 mg/dL (70-104); GOT 11 U/L (10-30); GPT 5 U/L (10-36); POTASSIUM 3.8 mmol/L (3.5-5.1); SODIUM 139 mmol/L (136-145); TCO2 25 mmol/L (25-35); TOTAL BILIRUBIN 0.23 mg/dL (0.20-1.00); TOTAL PROTEIN 6.2 g/dL (6.3-8.3)
[2019-04-08 07:39] LABS: BASO# 0.29 X1000 (0.0-0.2); BASO% 4.5 % (0.0-0.8); EOS# 0.04 X1000 (0.0-0.7); EOS% 0.6 % (0.0-10.0); HEMATOCRIT 29.6 % (37.0-47.0); LYMPH# 1.52 X1000 (1.2-3.4); LYMPH% 23.8 % (20.5-51.1); MCHC 30.4 g/dL (33-37); MCV 85.5 FL (81-99); MONO# 0.32 X1000 (0.11-0.59); MPV 9.4 FL (7.4-10.4); NEUT# 4.22 X1000 (1.4-6.5); NEUT% 66.1 % (42.2-75.2); PLT 351 X1000 (130-400); RBC 3.46 XMIL (4.2-5.4); RDW 20.5 % (11.5-14.5); WBC 6.39 X1000 (4.8-10.8)
[2019-04-08] MEDS ORDERED: TYLENOL PO PRN (08:42)
[2019-04-08] MEDS ORDERED: ZOFRAN IV PRN (08:42)
--- NOTE | 2019-04-08 09:50 | HISTORY AND PHYSICAL ---
PRIMARY CARE PROVIDER: Dr. Joslyn Mendoza. SENIOR DATA INTEGRATION DEVELOPER: Dr. Adame. CHIEF COMPLAINT: Large bloody stool. HISTORY OF PRESENT ILLNESS: Ms. Kristen Kowalski is an 88-year-old, female with a medical history of gastrointestinal bleeding secondary to diverticular bleed. She has had more than 1 spell of this. Last reported was 2014, except for she came in earlier this month with the same complaints with dizziness. Her hemoglobin was down to 6 at that time. She comes in. It is up to 9 now. During that time, she did receive 2 units of blood. She was evaluated by Dr. Adame, but deferred having any sort of endoscopy. She states that she woke up around 4:30 this morning to have a bowel movement, and had a very large, bloody bowel movement. She does not have any abdominal pain. No nausea, vomiting, dizziness, and it is only a one-time event. Her last admission, she had an abdominopelvic CTA on 03/29/2019, which revealed contrast blush near the anal verge, which was possibly the site of bleed. She also has colonic diverticulosis as well, so will consult Dr. Adame, get a current type and screen, and monitor her for further bleeding. PAST MEDICAL HISTORY: 1. Diverticular bleed with GI bleeding, history of multiple colonoscopies. 2. Diverticulosis. 3. Hiatal hernia. PAST SURGICAL HISTORY: 1. Lower back fusion with cement. 2. Tonsillectomy. SOCIAL HISTORY: Denies tobacco, alcohol, or illicit drug use. She is , lives alone, but has a strong family support system, has 3 adult children. FAMILY HISTORY: Denies any medical conditions in her mother or father. ALLERGIES: No known drug allergies. HOME MEDICATIONS: 1. Colace 100 mg p.o. twice daily. 2. Ferrous sulfate 325 mg p.o. daily. 3. MiraLAX 17 grams p.o. daily. REVIEW OF SYSTEMS: A 14-point review of systems are complete, and all were negative except for those mentioned above in the HPI. PHYSICAL EXAMINATION: VITAL SIGNS: Temperature 98.1 degrees, heart rate 104, respiratory rate 18, blood pressure 130/69, O2 saturation 96% on room air. She is 5 feet 2 inches tall, 120 pounds, BMI is 21.9. GENERAL: Ms. Kristen Kowalski is an 88-year-old, female. She is in no acute distress. She is able to answer questions appropriately. HEENT: Atraumatic, normocephalic. Pupils equal, round, reactive to light. Extraocular movements intact. Mucous membranes are dry. NECK: Trachea midline. CARDIOVASCULAR: S1, S2. Regular rate and rhythm. No rubs, gallops, murmurs. No lower extremity edema. PULMONARY: Clear to auscultate. Bilateral breath sounds. No accessory muscle use or work of breathing noted. GASTROINTESTINAL: Soft, nontender, nondistended. Positive bowel sounds x4. EXTREMITIES: Moves all extremities equally. Decreased range of motion. NEUROLOGIC: A and O x3. Follows commands. Sensory is intact. SKIN: Warm, dry, intact. LABORATORY DATA: White blood cells 6000, hemoglobin 9, hematocrit 29, platelet count 351,000. INR is 1.03, PTT is 28.5. Sodium 139, potassium 3.8, BUN 12, creatinine 0.7, glucose 127, calcium 8.9. Bilirubin 0.23, AST 11, ALT 5, albumin 3.7. IMAGING: None. OLD IMAGING: On 03/29/2019, she had a CT angio of the abdomen and pelvis, which showed contrast blush near the anal verge. Could be a sign of GI bleeding. No other abnormal contrast or extravasation is appreciated. There is moderate aortic atherosclerotic disease, extensive uncomplicated sigmoid colonic diverticulosis, numerous lower thoracic and lumbar spine compression deformities of unknown acuity, increase in size of right ovarian cyst seen in 2015. ASSESSMENT AND PLAN: 1. Most likely diverticular bleed. Will consult Dr. Adame, who saw her earlier this month. Will have a current type and screen, and get serial hemoglobin and hematocrit. Protonix intravenously twice a day. 2. Acute blood loss anemia. Her hemoglobin is actually improved. When she was first admitted earlier this month, on 03/29/2019, her hemoglobin was 6.3. She received 2 units of blood, and by 04/01/2019, it was up to 8.4 and she was discharged. Today is 04/08/2019, and it is at 9.0 despite having a large, bloody bowel movement this morning, and her vital signs are stable. 3. Diverticulosis. She will need to be on a high-fiber diet, stool softeners. 4. Deep venous thrombosis prophylaxis. Sequential compression devices. Dictated by JO ANN Benitez for Brandon Kauffman MD cc: JO ANN Benitez MD
[2019-04-08] MEDS: PROTONIX IV SCH ×2 (10:02→20:42)
[2019-04-08] MEDS: NS 1,000 ML IV SCH ×2 (10:02→20:41)
[2019-04-08 11:57] LABS: HEMATOCRIT 26.8 % (37.0-47.0); HEMOGLOBIN 8.2 g/dL (12.0-16.0)
[2019-04-08] MEDS: FERROUS SULFATE PO SCH ×2 (15:19→15:21)
[2019-04-08] MEDS: MIRALAX PO SCH ×2 (15:19→15:21)
[2019-04-08] MEDS: COLACE PO SCH ×3 (15:20→20:42)
--- NOTE | 2019-04-08 17:46 | PROGRESS NOTE ---
DATE: 04/08/2019 SUBJECTIVE: Patient has had several bloody bowel movements. OBJECTIVE: Vital signs: Blood pressure 98/64, pulse 83, respiratory rate 17, temperature 98.6 degrees, 97 on 2 L. Cardiovascular: Regular rate and rhythm. Pulmonary: Bilateral breath sounds, clear. GI: Soft, nontender, nondistended. Bowel sounds were positive. LABORATORY: White count 6, hemoglobin and hematocrit 8 and 26, platelets 351,000. Basic is normal. PROBLEM LIST: 1. Gastrointestinal bleed, most likely diverticular. She is having persistent bleeding now. This is her 2nd episode in a month. I think she will need a colonoscopy but that will be at the discretion of Dr. Adame or whoever is on-call for GI. 2. Anemia. She is somewhat anemic and this has progressed actually even in just the short period of time here. So we will check iron studies and complete her workup there. cc: Brandon Kauffman MD MTDD
[2019-04-08 18:28] LABS: HEMATOCRIT 24.9 % (37.0-47.0); HEMOGLOBIN 7.6 g/dL (12.0-16.0)
[2019-04-09 01:13] LABS: HEMATOCRIT 22.8 % (37.0-47.0); HEMOGLOBIN 6.8 g/dL (12.0-16.0)
[2019-04-09 05:15] LABS: URINE SOURCE CLEAN CATCH
[2019-04-09 05:17] LABS: BILIRUBIN URINE NEGATIVE (NEGATIVE); BLOOD URINE SMALL (NEGATIVE); COLOR STRAW; GLUCOSE URINE NEGATIVE (NEGATIVE); KETONE URINE TRACE mg/dL (NEGATIVE); LEUKOCYTES URINE MODERATE (NEGATIVE); NITRITE URINE NEGATIVE (NEGATIVE); PH URINE 6.5; PROTEIN URINE NEGATIVE (NEGATIVE); SP GRAVITY URINE 1.011; TURBIDITY URINE CLEAR (CLEAR); UROBILINOGEN URINE NORMAL (NORMAL)
[2019-04-09 05:18] LABS: UR EPITHELIAL CELLS <10 /HPF (<10); URINE BACTERIA NEGATIVE /HPF; URINE RBC <10 /HPF (<10)
[2019-04-09] MEDS: NS 1,000 ML IV SCH ×2 (09:08→17:30)
[2019-04-09] MEDS: COLACE PO SCH ×2 (09:09→20:18)
[2019-04-09] MEDS: PROTONIX IV SCH ×2 (09:09→20:18)
[2019-04-09] MEDS: FERROUS SULFATE PO SCH (09:09)
[2019-04-09] MEDS: MIRALAX PO SCH (09:09)
[2019-04-09 09:25] LABS: BASO# 0.03 X1000 (0.0-0.2); BASO% 0.8 % (0.0-0.8); EOS# 0.01 X1000 (0.0-0.7); EOS% 0.3 % (0.0-10.0); HEMATOCRIT 23.6 % (37.0-47.0); HEMOGLOBIN 7.1 g/dL (12.0-16.0); LYMPH# 1.41 X1000 (1.2-3.4); MCHC 30.1 g/dL (33-37); MCV 86.4 FL (81-99); MONO# 0.18 X1000 (0.11-0.59); NEUT# 1.99 X1000 (1.4-6.5); NEUT% 54.9 % (42.2-75.2); PLT 302 X1000 (130-400); RBC 2.73 XMIL (4.2-5.4); RDW 20.6 % (11.5-14.5); WBC 3.62 X1000 (4.8-10.8)
[2019-04-09 09:40] LABS: ESTIMATED GFR > 60; IRON SATURATION 12 %; TIBC 275 ug/dL; TOTAL IRON 34 ug/dL (49-151); UNBOUND IRON 241 ug/dL (112-346)
[2019-04-09] MEDS ORDERED: NS 500 ML IV ONE (09:58)
[2019-04-09 10:15] LABS: AGAP 8; ALB/GLOB RATIO 1.3; ALBUMIN 2.9 g/dL (3.5-5.0); ALKALINE PHOSPHATASE 47 U/L (32-104); BUN 8 mg/dL (8-22); CALCIUM 7.9 mg/dL (8.8-10.2); CHLORIDE 110 mmol/L (98-107); COSMO 278; CREATININE 0.5 mg/dL (0.5-0.9); GLUCOSE 112 mg/dL (70-104); GOT 9 U/L (10-30); GPT < 5 U/L (10-36); MAGNESIUM 1.9 mg/dL (1.5-2.7); POTASSIUM 3.9 mmol/L (3.5-5.1); SODIUM 140 mmol/L (136-145); TCO2 22 mmol/L (25-35); TOTAL BILIRUBIN 0.32 mg/dL (0.20-1.00); TOTAL PROTEIN 5.2 g/dL (6.3-8.3)
[2019-04-09 11:23] LABS: FERRITIN 29 ng/mL (13-150)
[2019-04-09] MEDS ORDERED: GOLYTELY PO ONE (14:00)
[2019-04-09] MEDS ORDERED: CYANOCOBALAMIN IM ONE (14:56)
[2019-04-09] MEDS ORDERED: CYANOCOBALAMIN IM SCH (15:00)
--- NOTE | 2019-04-09 15:18 | PROGRESS NOTE ---
DATE: 04/09/2019 SUBJECTIVE: Patient has no major issues. She is still having some bloody bowel movements. OBJECTIVE: Vital signs: Blood pressure 141/76, heart rate of 103, respiratory rate 16, temperature 98.5 degrees, 100% on room air. Cardiovascular: Regular rate and rhythm. Pulmonary: Bilateral breath sounds clear to auscultation. Gastrointestinal: Soft, nontender, nondistended. Bowel sounds are positive. LABORATORY DATA: White count 3, hemoglobin and hematocrit 7 and 23, platelets 302,000. Basic was normal. Her B12 is low. Iron studies are low, iron saturation is 12. PROBLEM LIST: 1. Gastrointestinal bleed, most likely diverticular, acute. I appreciate Dr. Cohen's intervention. Anticipate colonoscopy tomorrow and I appreciate his urgent dealing with the matter. This is her 2nd admission. Her hemoglobin has dropped as low as 6. We will need to continue to follow. 2. Iron deficiency anemia. We will start supplementing iron and continue to monitor. She is already on iron but I am going to switch her to Icar C and we may even give her some IV iron while she is here. We will also supplement her B12, which is very low. cc: Brandon Kauffman MD
[2019-04-09] MEDS: ICAR-C PO SCH (17:29)
--- NOTE | 2019-04-09 18:22 | GASTROENTEROLOGY CONSULTATION ---
DATE: 04/09/2019 REASON FOR CONSULTATION: Rectal bleeding, anemia. HISTORY OF PRESENT ILLNESS: This is an 88-year-old female who has had recurrent lower GI bleeding over the last month. She was recently in the hospital several weeks ago. At that time her bleeding resolved and she had declined endoscopy evaluation. This time she came in with repeat rectal bleeding. On the morning of admission she had a large bloody bowel movement. She has had several other bowel movements. She has denied nausea, vomiting or hematemesis. She does complain of a little lightheadedness when getting up. She had a CTA on 03/29/2019 when she was in the hospital that revealed contrast near the anal verge, possibly the site of her bleeding. By our record she had a colonoscopy in 2015 for diverticular bleeding. We have not seen her in the office. PAST MEDICAL HISTORY: Diverticular bleed in the past. Last reported colonoscopy was in 2014. PAST SURGICAL HISTORY: Back surgery, tonsillectomy. ALLERGIES: Penicillins, unknown reaction. HOME MEDICATIONS: Colace 100 mg twice a day, ferrous sulfate 325 mg daily, MiraLAX 17 g daily. SOCIAL HISTORY: No reported tobacco or alcohol use. She is a . She lives alone. She has a daughter at the bedside. REVIEW OF SYSTEMS: Per history of present illness. PHYSICAL EXAMINATION: Vital signs: Temperature 98.7 degrees, pulse 103, respirations 18, blood pressure 141/76. Generally the patient is awake and alert, in no acute distress.HEENT: Normocephalic, atraumatic. Pupils equal, round and reactive to light. Sclerae nonicteric. Respiratory: Lung sounds clear bilaterally. Cardiovascular: Regular rate and rhythm. Abdomen is soft, nontender. Positive bowel sounds. LABORATORY DATA: Hematology: WBC 3.62, hemoglobin 7.1, hematocrit 23.6, MCV 86.4, platelets 302,000. Coagulation: Pro time 13.7, INR 1.03, PTT 28.5. Chemistry: Sodium 140, potassium 3.9, chloride 110, CO2 is 22, BUN 8, creatinine 0.5, glucose 112, calcium 7.9. Iron 34, ferritin 29, folate 18, vitamin B12 is 236. ASSESSMENT AND PLAN: Gastrointestinal bleeding, most likely diverticular bleeding. The patient will receive packed red blood cells today. Dr. Cohen has seen the patient also, and options were discussed. The patient is wanting to proceed with colonoscopy for further evaluation. We will plan to proceed with her colonoscopy on Friday, 04/10. We have discussed the procedures along with benefits and risks, and discussed the benefits and risks with the daughter, and they both wish to proceed. Further plans will be made according to findings. The patient was also seen by Dr. Cohen. Thank you for this consultation. Dictated by JO ANN [place] for Rasheed Cohen MD cc: JO ANN Ortiz MD
[2019-04-09 18:56] LABS: HEMATOCRIT 26.8 % (37.0-47.0); HEMOGLOBIN 8.5 g/dL (12.0-16.0)
[2019-04-09] MEDS: SODIUM CHLORIDE 0.9% INJ SCH (20:18)
[2019-04-10] MEDS: NS 1,000 ML IV SCH ×2 (03:09→05:14)
[2019-04-10 08:21] LABS: BASO# 0.02 X1000 (0.0-0.2); BASO% 0.5 % (0.0-0.8); EOS# 0.06 X1000 (0.0-0.7); EOS% 1.4 % (0.0-10.0); HEMATOCRIT 26.8 % (37.0-47.0); HEMOGLOBIN 8.4 g/dL (12.0-16.0); LYMPH# 1.77 X1000 (1.2-3.4); LYMPH% 41.1 % (20.5-51.1); MCHC 31.3 g/dL (33-37); MCV 86.2 FL (81-99); MONO# 0.28 X1000 (0.11-0.59); MONO% 6.5 % (1.7-9.3); MPV 9.6 FL (7.4-10.4); NEUT# 2.18 X1000 (1.4-6.5); NEUT% 50.5 % (42.2-75.2); PLT 269 X1000 (130-400); RBC 3.11 XMIL (4.2-5.4); RDW 19.5 % (11.5-14.5); WBC 4.31 X1000 (4.8-10.8)
[2019-04-10 08:55] LABS: AGAP 9; ALB/GLOB RATIO 1.3; ALBUMIN 2.9 g/dL (3.5-5.0); ALKALINE PHOSPHATASE 47 U/L (32-104); BUN 6 mg/dL (8-22); CALCIUM 8.2 mg/dL (8.8-10.2); CHLORIDE 109 mmol/L (98-107); COSMO 279; CREATININE 0.5 mg/dL (0.5-0.9); ESTIMATED GFR > 60; GLUCOSE 95 mg/dL (70-104); GOT 11 U/L (10-30); GPT < 5 U/L (10-36); MAGNESIUM 1.9 mg/dL (1.5-2.7); POTASSIUM 3.7 mmol/L (3.5-5.1); SODIUM 141 mmol/L (136-145); TCO2 23 mmol/L (25-35); TOTAL BILIRUBIN 0.74 mg/dL (0.20-1.00); TOTAL PROTEIN 5.2 g/dL (6.3-8.3)
[2019-04-10] MEDS ORDERED: VITAMIN B-12 PO SCH (09:00)
[2019-04-10] MEDS: SODIUM CHLORIDE 0.9% INJ SCH (09:46)
[2019-04-10] MEDS: ICAR-C PO SCH (09:46)
[2019-04-10] MEDS: MIRALAX PO SCH (09:46)
[2019-04-10] MEDS: PROTONIX IV SCH (09:46)
[2019-04-10] MEDS: COLACE PO SCH (09:46)
[2019-04-10] MEDS ORDERED: DIPRIVAN 1% ONE (09:50)
[2019-04-10] MEDS ORDERED: XYLOCAINE-MPF 2% ONE (09:50)
[2019-04-10 13:49] VITALS: BP 119/53
--- NOTE | 2019-04-10 20:00 | DISCHARGE SUMMARY ---
ADMISSION DATE: 04/08/2019 DISCHARGE DATE: 04/10/2019 DISCHARGE DIAGNOSES: 1. Symptomatic anemia. 2. Iron deficiency anemia. 3. B12 deficiency. 4. Lower gastrointestinal (GI) bleed most likely related to hemorrhoids. CONSULTATIONS: Dr. Cohen. PROCEDURES: Colonoscopy. I do not have a report yet. HISTORY OF PRESENT ILLNESS: This is an 88-year-old female who came in with rectal bleeding. Her last colonoscopy was 2014. She was admitted about a month ago with a low blood count. Her hemoglobin was 6. She received 2 units of blood. She had bloody bowel movements and was readmitted. Dr. Cohen was consulted and this on the weekend so was it on the call schedule. She underwent colonoscopy today, however on the day of discharge, which was 04/10/2019, reportedly there was no active bleeding and but she had some very large hemorrhoids which we felt that the bleeding was related to that. She gets constipated and then has difficulty with relief and then has a bloody bowel movement. She did receive blood transfused 1 unit because her hemoglobin and hematocrit had dropped to a low of 6.8 and 22, came up to 8 and 26, and then that was stable for over 24 hours. She was discharged in stable condition on the , vital signs stable. No abdominal pain and there was no active bleeding. MEDICATIONS: Vitamin B12 1000 mcg daily, Colace 100 b.i.d., Icar-C daily and MiraLAX 17 g daily. FOLLOWUP: She will need a follow up CBC in 1 week, that is Dr. Mendoza, and follow up with Drs. Adame/Kiana in 2 to 4 weeks. I do not know if biopsies were completed during this colonoscopy. I do not have the report yet but she also may need surgical management of her hemorrhoids, especially if there is significant bleeding associated we may want to consider General Surgery evaluation if this persists. DISCHARGE CONDITION: Stable. She was pretty adamant about going home after Dr. Cohen had cleared her. Her B12 levels were low this admission at 236, so she is B12 deficient. Refer to Dr. Mendoza and Dr. Adame. cc: Brandon Kauffman MD
[2019-04-11] MEDS ORDERED: PRILOSEC PO SCH (07:00)
--- NOTE | 2019-04-12 13:27 | ENDOSCOPY OPERATIVE NOTE ---
[facility] ENDOSCOPY OPERATIVE NOTE , PATIENT: Kristen Kowalski ADM DATE: 04/10/2019 MR #: [id number] : 1930 COLONOSCOPY PROCEDURE REPORT PROCEDURE DATE: 04/10/2019 SURGEON: Rasheed Cohen MD STATUS: inpatient FEED PROJECT ENGINEER: Maria Isabel Harden PREOPERATIVE DIAGNOSIS: The patient is a 88 yr old female here for a colonoscopy due to anal bleedin g and anemia, non-specific. PROCEDURE PERFORMED: Colonoscopy, diagnostic MEDICATIONS: Per Anesthesia PREP TYPE: GoLytely
== END 2019-04-10 16:50 | disposition home or self-care (01) | DRG 394 ==
LOC: ED 06:10 → EDIPHOLD 09:25 → 3N 11:45
PROVIDERS: ATTEND Internal Medicine